=== PATIENT | male | born 1985 | race Caucasian/White ===

== ENCOUNTER 2021-02-28 08:50 | Emergency (ER) | payer OTHER ==
--- NOTE | 2021-02-28 09:27 | ER ---
Nurse's Notes [facility] Name: Gold Olsen Age: 35 yrs Sex: Male : 1985 Arrival Date: 02/28/2021 Time: 08:53 Bed 19 Private MD: Diagnosis: Acute pharyngitis, unspecified;Otalgia, left ear Presentation: 02/28 09:07 Chief complaint: Patient states: L ear pain and sore throat that began last night. ss Coronavirus screen: Client denies travel out of the [place] in the last 14 days. Ebola Screen: Patient denies exposure to infectious person. Patient denies travel to an Ebola-affected area in the 21 days before illness onset. Initial Sepsis Screen: Does the patient meet any 2 criteria? No. Patient's initial sepsis screen is negative. Does the patient have a suspected source of infection? No. Patient's initial sepsis screen is negative. Risk Assessment: Do you want to hurt yourself or someone else? Patient reports no desire to harm self or others. Onset of symptoms was February 27, 2021. 09:07 Method Of Arrival: Ambulatory 09:07 Acuity: JOLANTA 4 Triage Assessment: 09:15 General: Appears in no apparent distress. comfortable, Behavior is calm, cooperative, bp appropriate for age. Pain: Complains of pain in left ear and neck. EENT: Reports pain in left ear. Neuro: No deficits noted. Cardiovascular: No deficits noted. Respiratory: No deficits noted. GI: No signs and/or symptoms were reported involving the gastrointestinal system. : No signs and/or symptoms were reported regarding the genitourinary system. Derm: No deficits noted. Musculoskeletal: No deficits noted. Historical: - Allergies: 09:09 No Known Allergies; ss - Home Meds: 09:09 Valtrex [Active]; ss - PMHx: 09:09 None; ss - PSHx: 09:09 None; ss - Immunization history:: Adult Immunizations up to date. - Social history:: Smoking status: Patient denies any tobacco usage or history of. - Family history:: not pertinent. - Hospitalizations: : No recent hospitalization is reported. Screenin:00 Abuse screen: Denies threats or abuse. Denies injuries from another. Nutritional bp screening: No deficits noted. Tuberculosis screening: No symptoms or risk factors identified. Fall Risk None identified. Assessment: 09:15 General: SEE TRIAGE NOTE. bp 10:00 Reassessment: PT D/C HOME AMBULATORY, DX WITH VIRAL PHARYNGITIS. bp Vital Signs: 09:07 BP 123 / 83; Pulse 73; Resp 14; Temp 98.5(TE); Pulse Ox 99% on R/A; Weight 77.11 kg; Height 5 ft. 7 in. (170.18 cm); Pain 2/10; 10:31 BP 127 / 79; Pulse 75; Resp 17; Temp 98.5; Pulse Ox 99% ; bp 09:07 Body Mass Index 26.63 (77.11 kg, 170.18 cm) ED Course: 08:53 Patient arrived in ED. rg4 09:09 Triage completed. ss 09:09 Arm band placed on right wrist. 09:12 Jaleel Snider MD is Attending Physician. rn 09:13 Jared Polanco, HANNAH is Primary Nurse. bp 10:00 Patient has correct armband on for positive identification. Bed in low position. Call bp light in reach. Side rails up X2. 10:00 No provider procedures requiring assistance completed. Patient did not have IV access bp during this emergency room visit. Administered Medications: No medications were administered Outcome: 09:27 Discharge ordered by . rn 10:00 Discharged to home ambulatory. bp 10:00 Condition: stable 10:00 Discharge instructions given to patient, Instructed on discharge instructions, follow up and referral plans. Demonstrated understanding of instructions, follow-up care. 10:31 Patient left the ED. Signatures: Jaleel Snider MD MD rn Smirch, Shelby, RN RN Nida Dotson 4 Jared Polanco RN RN bp
--- NOTE | 2021-02-28 09:28 | EDPHYS ---
Physician Documentation [facility] Name: Gold Olsen Age: 35 yrs Sex: Male : 1985 Arrival Date: 02/28/2021 Time: 08:53 Bed 19 Private MD: ED Physician Jaleel Snider HPI: 02/28 09:22 This 35 yrs old Male presents to ER via Ambulatory with complaints of Ear rn Pain, Sore Throat. 09:22 The patient presents with pain. rn 09:22 The patient presents with sore throat. The patient describes throat pain as rn intermittent, raw. 09:22 Onset: The symptoms/episode began/occurred last night. Severity of symptoms: At their rn worst the symptoms were mild, in the emergency department the symptoms are unchanged. Modifying factors: The symptoms are alleviated by nothing, the symptoms are aggravated by swallowing, Patient's oral intake status: good. Associated signs and symptoms: Pertinent positives: Sore throat Pertinent negatives chest pain, cough, diarrhea, fever, nausea, shortness of breath, vomiting. The patient has not experienced similar symptoms in the past. The patient has not recently seen a physician. Reports sore throat and let ear pain since last night, getting over her illness, has been sick with runny nose and cough/congestion, is getting better without abx. Patient without fever. + mild congestion, + sore throat, + left ear pain since last night. No cough or sob. . Historical: - Allergies: 09:09 No Known Allergies; ss - Home Meds: 09:09 Valtrex [Active]; ss - PMHx: 09:09 None; ss - PSHx: 09:09 None; ss - Immunization history:: Adult Immunizations up to date. - Social history:: Smoking status: Patient denies any tobacco usage or history of. - Family history:: not pertinent. - Hospitalizations: : No recent hospitalization is reported. ROS: 09:22 Constitutional: Negative for fever, chills, and weight loss, Eyes: Negative for injury, rn pain, redness, and discharge, ENT: + sore throat, + left ear pain Neck: Negative for injury, pain, and swelling, Cardiovascular: Negative for chest pain, palpitations, and edema, Respiratory: Negative for shortness of breath, cough, wheezing, and pleuritic chest pain, Abdomen/GI: Negative for abdominal pain, nausea, vomiting, diarrhea, and constipation, Neuro: Negative for headache, weakness, numbness, tingling, and seizure. Exam: 09:22 Constitutional: This is a well developed, well nourished patient who is awake, alert, rn and in no acute distress. Head/Face: Normocephalic, atraumatic. Eyes: Conjunctiva and sclera are non-icteric and not injected. Cornea within normal limits. Periorbital areas with no swelling, redness, or edema. ENT: MMM, + pharyngeal erythema without tonsillar swelling or exudate, no evidence of [employer], no stridor. Normal bilateral TM. Neck: Trachea midline, no masses palpated, and no cervical lymphadenopathy. Supple, full range of motion without nuchal rigidity, or vertebral point tenderness. No Meningismus. Respiratory: No increased work of breathing, no retractions or nasal flaring. Skin: Warm, dry, no rashes Neuro: Awake and alert, GCS 15 Vital Signs: 09:07 BP 123 / 83; Pulse 73; Resp 14; Temp 98.5(TE); Pulse Ox 99% on R/A; Weight 77.11 kg; ss Height 5 ft. 7 in. (170.18 cm); Pain 2/10; 10:31 BP 127 / 79; Pulse 75; Resp 17; Temp 98.5; Pulse Ox 99% ; bp 09:07 Body Mass Index 26.63 (77.11 kg, 170.18 cm) ss MDM: 09:12 Patient medically screened. rn 09:22 Differential diagnosis: Allergic rhinitis, laryngitis, pharyngitis, upper respiratory rn infection, viral syndrome. Data reviewed: vital signs, nurses notes, and as a result, I will discharge patient. Counseling: I had a detailed discussion with the patient and/or guardian regarding: the historical points, exam findings, and any diagnostic results supporting the discharge/admit diagnosis, the need for outpatient follow up, to return to the emergency department if symptoms worsen or persist or if there are any questions or concerns that arise at home. Special discussion: I discussed with the patient/guardian in detail that at this point there is no indication for admission to the hospital. It is understood, however, that if the symptoms persist or worsen the patient needs to return immediately for re-evaluation. ED course: Most likely viral syndrome given with illness recently and now he is sick, normal vitals, getting better without abx, will not prescribe abx for now, return precautions given and understood.. Administered Medications: No medications were administered Disposition Summary: 02/28/21 09:27 Discharge Ordered Location: Home rn Problem: new rn Symptoms: are unchanged rn Condition: Stable rn Diagnosis - Acute pharyngitis, unspecified rn - Otalgia, left ear rn Followup: rn - With: Private Physician - When: As needed - Reason: Recheck today's complaints, Re-evaluation by your physician Discharge Instructions: - Discharge Summary Sheet rn - Earache, Adult rn - Pharyngitis rn - Sore Throat rn - Upper Respiratory Infection, Adult rn - Viral Respiratory Infection rn Forms: - Medication Reconciliation Form rn - Thank You Letter rn - Antibiotic international tax manager - Prescription Opioid Use rn Signatures: Jaleel Snider MD MD rn Smirch, Shelby, RN RN ss Corrections: (The following items were deleted from the chart) 09:27 09:22 Constitutional: This is a well developed, well nourished patient who is awake, rn alert, and in no acute distress. Head/Face: Normocephalic, atraumatic. Eyes: Conjunctiva and sclera are non-icteric and not injected. Cornea within normal limits. Periorbital areas with no swelling, redness, or edema. ENT: MMM, + pharyngeal erythema without tonsillar swelling or exudate, no evidence of [employer], no stridor Neck: Trachea midline, no masses palpated, and no cervical lymphadenopathy. Supple, full range of motion without nuchal rigidity, or vertebral point tenderness. No Meningismus. Respiratory: No increased work of breathing, no retractions or nasal flaring. Skin: Warm, dry, no rashes Neuro: Awake and alert, GCS 15 rn
[2021-02-28 10:50] VITALS: BP 123/83; TEMP 98.5; O2SAT 99
== END 2021-02-28 10:31 | disposition home or self-care (01) ==
LOC: ER 08:50
DX: H92.02 Otalgia, left ear (principal)
CPT/HCPCS: 99281